=== PATIENT | female | born 1985 | race Caucasian/White ===

== ENCOUNTER 2019-11-05 11:17 | Inpatient (IN) | payer BC, OTHER ==
--- NOTE | 2019-11-05 12:23 | PDOC ---
History of Present Illness - General Chief Complaint: Shortness of Breath Stated Complaint: SENT BY DOC, SOB Time Seen by Provider: 11/05/19 12:23 History Source: Patient - History of Present Illness Initial Comments: 11/05/19 12:50 Ms. Obrien is a 34 y/o woman w/hx asthma, DM p/w four days of sob, syncopal episode at work yesterday. She reports presenting to urgent care when her symptoms began on Saturday, and receiving a breathing treatment, prednisone, amoxicillin at that time. She reports that the wheezing has resolved but the sob has continued. Yesterday while at her desk at work she reports becoming acutely diaphoretic before losing consciousness and waking up with her head on her desk. She had a complicated by placenta accreta and previa resulting in hysterectomy 7 months ago, and has had multiple infections at the surgical site since then. Her most recent course of abx was for a MRSA infection in August. Picc line was removed at the end of august. Her is admitted to the hospital for a diverticulitis and she is concerned about child welfare caseworker. Past History - Past Medical History Allergies/Adverse Reactions: Allergies Allergy/AdvReac Type Severity Reaction Status Date / Time No Known Drug Allergies Allergy Verified 11/05/19 11:38 strawberry [[place]] Allergy Verified 11/05/19 11:38 garlic AdvReac Mild Itching Verified 11/05/19 11:38 nut Allergy Mild Hives Uncoded 11/05/19 11:38 Home Medications: Ambulatory Orders Vit/Iron Fum/Folic AC [ Tablet] 1 each PO DAILY 05/17/14 Albuterol Sulfate Inhaler - [Ventolin Hfa Inhaler -] 1 - 2 inh PO Q4H PRN 04/19/16 Insulin NPH [Novolin N Vial -] 44 units SQ ACBK 05/22/16 Insulin NPH [Novolin N Vial -] 46 units SQ HS 05/22/16 Insulin Regular [Novolin R Vial -] 5 units SQ ASDIR 05/22/16 Insulin Regular [Novolin R Vial -] 25 unit SQ ACBK 05/22/16 Insulin Regular [Novolin R Vial -] 25 units SQ ACDIN 05/22/16 Asthma: Yes (LAST ATTACK 2 YEARS AGO) Cancer: No Cardiac Disorders: No COPD: No Diabetes: Yes HTN: No Seizures: No Thyroid Disease: No - Psycho Social/Smoking Cessation Hx Smoking History: Never smoked Have you smoked in the past 12 months: No Information on smoking cessation initiated: No Hx Alcohol Use: No Drug/Substance Use Hx: No Substance Use Type: None Hx Substance Use Treatment: No Review of Systems - Review of Systems Able to Perform ROS?: Yes Comments:: 11/05/19 16:02 GENERAL/CONSTITUTIONAL: No fever or chills. No weakness. HEAD, EYES, EARS, NOSE AND THROAT: No change in vision. No ear pain or discharge. No sore throat. CARDIOVASCULAR: No chest pain RESPIRATORY: SOB. No cough, wheezing, or hemoptysis. GASTROINTESTINAL: Abdominal pain. No nausea, vomiting, diarrhea or constipation. GENITOURINARY: No dysuria, frequency, or change in urination. MUSCULOSKELETAL: No joint or muscle swelling or pain. No neck or back pain. SKIN: No rash NEUROLOGIC: Syncope. No headache, vertigo, or change in strength/sensation. ENDOCRINE: No increased thirst. No abnormal weight change HEMATOLOGIC/LYMPHATIC: No anemia, easy bleeding, or history of blood clots. ALLERGIC/IMMUNOLOGIC: No hives or skin allergy. *Physical Exam - Vital Signs Last Vital Signs Temp Pulse Resp BP Pulse Ox 97.9 F 83 19 145/75 99 11/05/19 11:34 11/05/19 11:34 11/05/19 11:34 11/05/19 11:34 11/05/19 11:34 - Physical Exam 11/05/19 16:05 GENERAL: Awake, alert, and fully oriented HEAD: No signs of trauma, normocephalic, atraumatic EYES: PERRLA, EOMI, sclera anicteric, conjunctiva clear ENT: Auricles normal inspection, hearing grossly normal, nares patent, oropharynx clear without exudates. Moist mucosa NECK: Normal ROM, supple, no lymphadenopathy, JVD, or masses LUNGS: No distress, speaks full sentences, clear to auscultation bilaterally HEART: Regular rate and rhythm, normal S1 and S2, no murmurs, rubs or gallops, peripheral pulses normal and equal bilaterally. ABDOMEN: Diffuse tenderness. Surgical site visualized, no active drainage or overlaying erythema. Soft, normoactive bowel sounds. No guarding, no rebound. No masses EXTREMITIES : Normal inspection, Normal range of motion, no edema. No clubbing or cyanosis NEUROLOGICAL: Cranial nerves II through XII grossly intact. Normal speech, normal gait, no focal sensorimotor deficits SKIN: Warm, Dry, normal turgor, no rashes or lesions noted ED Treatment Course - LABORATORY CBC & Chemistry Diagram: 11/05/19 13:25 11/05/19 13:25 Medical Decision Making - Medical Decision Making 11/05/19 16:05 34F w/hx asthma, HTN p/w four days of worsening abdominal pain, sob sent by urgent care for evaluation. Ddx includes intraabdominal abscess given multiple prior infections. Atypical ACS also possible given risk factors. PE unlikely with PERC 0. Plan: CT abdomen/pelvis w/contrast CBC CMP Cardiac profile Lactate BNP Serum test EKG CXR UA Urine culture 4mg morphine for pain Duoneb x2 Dispo: Pending --- CT abdomen/pelvis - no abscess or other acute process noted CBC - WBC 12 CMP - wnl Lactate - 3.7 1L LR ordered - negative BNP - negative 11/05/19 17:20 Case discussed with admitting team, patient admitted. Discharge - Discharge Information Problems reviewed: Yes Clinical Impression/Diagnosis: Syncope Qualifiers: Syncope type: unspecified Qualified Code(s): R55 - Syncope and collapse Asthma exacerbation Qualifiers: Asthma severity: unspecified severity Asthma persistence: unspecified Qualified Code(s): J45.901 - Unspecified asthma with (acute) exacerbation Condition: Stable - Admission Yes - Follow up/Referral Referrals: Radames Curtis MD [Primary Care Provider] - - Patient Discharge Instructions - Post Discharge Activity
[2019-11-05] MEDS ORDERED: ACETAMINOPHEN 1000 MG/100 ML VIAL (NON FORMULARY) IVPB ONE (12:46)
[2019-11-05] MEDS ORDERED: morphine CARPU-JECT 4 MG/1 ML DISP.SYRIN IVPUSH ONE (12:53)
[2019-11-05] MEDS ORDERED: ACETAMINOPHEN INJECTION 100 ML IVPB ONE (13:03)
[2019-11-05] MEDS ORDERED: morphine SULFATE 4 MG/ML VIAL ONE (13:03)
[2019-11-05] MEDS ORDERED: ALBUTEROL SO4 2.5/IPRATROPIUM 0.5 INH SOL 3 ML VIAL.NEB. NEB ONE ×3 (13:13→16:11)
[2019-11-05 14:18] LABS: BASO % 0.8 % (0-2.0); EOS % 0.1 % (0-4.5); HEMATOCRIT 39.5 % (32.4-45.2); HEMOGLOBIN 12.8 GM/dL (10.7-15.3); LYMPH % 11.4 % (8-40); MCH 23.9 pg (25.7-33.7); MCHC 32.3 g/dl (32.0-36.0); MEAN CELL VOLUME 73.9 fl (80-96); MEAN PLT VOLUME 8.3 fl (7.5-11.1); MONO % 2.2 % (3.8-10.2); NEUT % 85.5 % (42.8-82.8); PLATELET COUNT 322 K/MM3 (134-434); RBC 5.34 M/mm3 (3.60-5.2); RDW 19.4 % (11.6-15.6); WHITE BLOOD COUNT 12.1 K/mm3 (4.0-10.0)
[2019-11-05 14:27] LABS: INR 0.87 (0.83-1.09); PROTHROMBIN TIME (PATIENT) 10.2 SEC (9.7-13.0)
[2019-11-05 14:56] LABS: ALBUMIN 4.1 g/dl (3.4-5.0); ALK PHOS 107 U/L (45-117); ANION GAP 11 MMOL/L (8-16); BILIRUBIN,TOTAL 0.6 mg/dL (0.2-1); BLOOD UREA NITROGEN 11.2 mg/dL (7-18); CALCIUM 9.4 mg/dL (8.5-10.1); CHLORIDE 104 mmol/L (98-107); CO2 22 mmol/L (21-32); CREATININE 0.7 mg/dL (0.55-1.3); GLUCOSE,RANDOM 116 mg/dL (74-106); N-TERMINAL BNP 65.6 pg/ml (5-125); POTASSIUM 5.2 mmol/L (3.5-5.1); SGOT/AST 22 U/L (15-37); SGPT/ALT 24 U/L (13-61); SODIUM 138 mmol/L (136-145); TOT PROT 8.1 g/dl (6.4-8.2)
--- NOTE | 2019-11-05 15:05 | EKG ---
Test Reason : Blood Pressure : / mmHG Vent. Rate : 072 BPM Atrial Rate : 072 BPM P-R Int : 148 ms QRS Dur : 074 ms QT Int : 380 ms P-R-T Axes : 025 032 032 degrees QTc Int : 416 ms NORMAL SINUS RHYTHM WITH SINUS ARRHYTHMIA LOW VOLTAGE QRS BORDERLINE ECG NO PREVIOUS ECGS AVAILABLE Confirmed by ANJEL WILSON, SUJATHA ([id number]) on 11/05/2019 3:04:56 PM Referred By: Confirmed By:SUJATHA HOBBS MD
[2019-11-05] MEDS ORDERED: LACTATED RINGERS SOLUTION 1000 ML INFUS.BAG IV ONE ×2 (15:09→17:02)
--- NOTE | 2019-11-05 16:04 | PDOC ---
Attending Attestation - Resident Resident Name: Jose Alejandro Goode - HPI HPI: 11/05/19 15:58 Pt presents to the ED complaining of worsening abdominal pain and shortness of breath. History of cesarian section with infection and revisions, as noted in resident note. Also complaining of worsening shortness of breath and dry cough without fever or sick contacts. States that the shortnes of breath feels like her fever and is improved with her inhaler. Denies travel or sick contacts. - Physicial Exam PE: 11/05/19 16:00 Agree with resident exam. Patient is alert and oriented and in no acute distress. Lungs are clear, with good air entry and no wheezing. + tachypnea. Abdomen:+ incision with 1 cm area that is open. No drainage. No surrounding erythema. + diffuse abdominal tenderness. - Medical Decision Making 11/05/19 16:02 Pt presents to the ED complaining of wheezing and shortness of breath consistent with prior asthma exacerbations. Will treat with nebs and reasess. recently completed course of steroids. CXR negative. Also complaining of abodminal pain, history of multiple infections. Will check CT to rule out abscess or other infections. Will check UA. Lactate is elevated. Will hydrate and repeat. Since patient is afebrile, will hold of on antibiotics while we attempt to identify a source. 11/05/19 16:04
[2019-11-05] MEDS ORDERED: methylPREDNISolone NA SUCC 125 MG/2 ML VIAL IVPB ONE (16:27)
[2019-11-05] MEDS ORDERED: methylPREDNISolone NA SUCC 125 MG/2 ML VIAL ONE (17:00)
[2019-11-05] MEDS ORDERED: SODIUM CHLORIDE 2,000 ML IV STA (17:33)
[2019-11-05] MEDS ORDERED: SODIUM ZIRCONIUM CYCLOSILICATE (LOKELMA) 5 GM PACKET PO ONE (17:36)
[2019-11-05] MEDS ORDERED: ALBUTEROL SO4 0.042% IH SOL 1.25 MG/3 ML VIAL.NEB NEB PRN (17:37)
--- NOTE | 2019-11-05 18:05 | HP ---
CHIEF COMPLAINT: asthma; abdominal pain PCP: HISTORY OF PRESENT ILLNESS: 34 y/o female with PMH of DM, asthma, multiple abdominal surgeries presents to the ED with complaints of shortness of breath and abdominal pain- she states that her shortness of breath started a few days ago and she went to urgent care and she was discharged home on a steroid taper and augmentin in addition-she was also having abdominal pains; she has had multiple abdominal surgeries (3 c sections; hysterectomy which was complicated by multiple abscesses requiring in patient hospitalizations and picc line abx) she states that on saturday she also started to notice that she had some yellow discharge with a fishy odor; yesterday her pain and breathing were very troublesome (she was gasping for air) and she passed out at work- she had some daiphoresis prior to passing out however she was not having any chest pains/nausea/vomiting- she denies any recent travel/sick contacts ER course was notable for: (1)vitals wnl (2)wbc 12.6, K 5.2, lactic acid 3.7 UA pending (3)cxr: negative for any acute pathology; ab/pelvis CT negative for any acute abscess or intrabdominal process (4) solumedrol 125; duonebs x2; morphine 4mg, 1L LR Recent Travel: denies PAST MEDICAL HISTORY: see above PAST SURGICAL HISTORY: 3 c sections; 1 hysterectomy Social History: Smoking:denies Alcohol:denies Drugs: denies Allergies No Known Drug Allergies Allergy (Verified 11/05/19 11:38) strawberry [[place]] Allergy (Verified 11/05/19 11:38) garlic Adverse Reaction (Mild, Verified 11/05/19 11:38) Itching nut Allergy (Mild, Uncoded 11/05/19 11:38) Hives HOME MEDICATIONS: Home Medications Medication Instructions Recorded Vit/Iron Fum/Folic AC 1 each PO DAILY 05/17/14 [ Tablet] Albuterol Sulfate Inhaler - 1 - 2 inh PO Q4H PRN 04/19/16 [Ventolin Hfa Inhaler -] Insulin NPH [Novolin N Vial -] 44 units SQ ACBK 05/22/16 Insulin NPH [Novolin N Vial -] 46 units SQ HS 05/22/16 Insulin Regular [Novolin R Vial -] 5 units SQ ASDIR 05/22/16 Insulin Regular [Novolin R Vial -] 25 unit SQ ACBK 05/22/16 Insulin Regular [Novolin R Vial -] 25 units SQ ACDIN 05/22/16 REVIEW OF SYSTEMS CONSTITUTIONAL: Absent: fever, chills, diaphoresis, generalized weakness, malaise, loss of appetite, weight change HEENT: Absent: rhinorrhea, nasal congestion, throat pain, throat swelling, difficulty swallowing, mouth swelling, ear pain, eye pain, visual changes CARDIOVASCULAR: Absent: chest pain, syncope, palpitations, irregular heart rate, lightheadedness, peripheral edema RESPIRATORY: Present: shortness of breath, wheezing Absent: cough, , dyspnea with exertion, orthopnea, stridor, hemoptysis GASTROINTESTINAL: Present: abdominal pain Absent: abdominal distension, nausea, vomiting, diarrhea, constipation, melena, hematochezia GENITOURINARY: Absent: dysuria, frequency, urgency, hesitancy, hematuria, flank pain, genital pain MUSCULOSKELETAL: Absent: myalgia, arthralgia, joint swelling, back pain, neck pain SKIN: Absent: rash, itching, pallor HEMATOLOGIC/IMMUNOLOGIC: Absent: easy bleeding, easy bruising, lymphadenopathy, frequent infections ENDOCRINE: Absent: unexplained weight gain, unexplained weight loss, heat intolerance, cold intolerance NEUROLOGIC: Absent: headache, focal weakness or paresthesias, dizziness, unsteady gait, seizure, mental status changes, bladder or bowel incontinence PSYCHIATRIC: Absent: anxiety, depression, suicidal or homicidal ideation, hallucinations. PHYSICAL EXAMINATION Vital Signs - 24 hr 11/05/19 11/05/19 11:34 12:05 Temperature 97.9 F Pulse Rate 83 Respiratory 19 Rate Blood Pressure 145/75 O2 Sat by Pulse 99 98 Oximetry (%) GENERAL: Awake, alert, and fully oriented, in no acute distress. EYES: PEERLA; EOMI; no scleral icterus NECK: no JVD; no lymphadenopathy LUNGS: diminsihed breath sounds slightly at the bases; no wheezing/rales/rhonchi HEART: Regular rate and rhythm, normal S1 and S2 without murmur, rub or gallop. ABDOMEN: Soft, +BS ; midline verticxal wound slight erytham at incision site no surrounding erythema/drainage/ foul odor- MUSCULOSKELETAL: Normal range of motion at all joints. No bony deformities or tenderness. No CVA tenderness. EXTREMITIES: warm; well-perfused no clubbing/cyanosis or edema NEUROLOGICAL: Cranial nerves II-XII intact. Normal speech. Normal gait. PSYCHIATRIC: Cooperative. Good eye contact. Appropriate mood and affect. SKIN: Warm, dry, normal turgor, no rashes or lesions noted, normal capillary refill. Laboratory Results - last 24 hr 11/05/19 11/05/19 11/05/19 13:25 13:25 13:25 WBC 12.1 H RBC 5.34 H Hgb 12.8 Hct 39.5 D MCV 73.9 L MCH 23.9 L D MCHC 32.3 RDW 19.4 H Plt Count 322 D MPV 8.3 Absolute Neuts (auto) 10.3 H Neutrophils % 85.5 H D Lymphocytes % 11.4 D Monocytes % 2.2 L Eosinophils % 0.1 D Basophils % 0.8 Nucleated RBC % 0 PT with INR INR PTT (Actin FS) Sodium Potassium Chloride Carbon Dioxide Anion Gap BUN Creatinine Est GFR (CKD-EPI)AfAm Est GFR (CKD-EPI)NonAf Random Glucose Lactic Acid 3.7 H* Calcium Total Bilirubin AST ALT Alkaline Phosphatase Creatine Kinase Troponin I B-Natriuretic Peptide Total Protein Albumin Serum , Qual Negative 11/05/19 11/05/19 13:25 13:25 WBC RBC Hgb Hct MCV MCH MCHC RDW Plt Count MPV Absolute Neuts (auto) Neutrophils % Lymphocytes % Monocytes % Eosinophils % Basophils % Nucleated RBC % PT with INR 10.20 INR 0.87 PTT (Actin FS) 31.0 Sodium 138 Potassium 5.2 H Chloride 104 Carbon Dioxide 22 Anion Gap 11 BUN 11.2 Creatinine 0.7 Est GFR (CKD-EPI)AfAm 131.02 Est GFR (CKD-EPI)NonAf 113.04 Random Glucose 116 H Lactic Acid Calcium 9.4 Total Bilirubin 0.6 AST 22 ALT 24 Alkaline Phosphatase 107 Creatine Kinase 105 Troponin I < 0.02 B-Natriuretic Peptide 65.6 Total Protein 8.1 Albumin 4.1 Serum , Qual ASSESSMENT/PLAN: 34 y/o female with PMH of DM, asthma, multiple abdominal surgeries presents to the ED with complaints of shortness of breath and abdominal pain #Asthma Exacerbation CXR negative; receieved solumedrol 125; duonebs -solumedrol 40 q4 -duonebs standing -albuterol PRN -repeat CXR in AM #Abdominal Pain ab/pelvis CT w/ contrast showing no abscess or intra-abdominal process -elevated lactic acid; will give 2 more boluses then repeat -morphine PRN for pain -currently doesn't look infected; will monitor for signs on infection -wound care consulted #Hyperkalemia K 5.2 -will give lokelma x1 -repeat BMP at midnight #DM -BGMS ACHS -ISS ACHS f/e/n NS @75 mls/hr hyperkalemia- repeat bmp at midnight sodium controlled dvt ppx: scds Family Medical History Family Hx Diabetes: Mother Problem List - Problem (1) Asthma exacerbation Code(s): J45.901 - UNSPECIFIED ASTHMA WITH (ACUTE) EXACERBATION Qualifiers: Asthma severity: unspecified severity Asthma persistence: unspecified Qualified Code(s): J45.901 - Unspecified asthma with (acute) exacerbation (2) Gestational diabetes mellitus Code(s): O24.419 - GESTATIONAL DIABETES MELLITUS IN , UNSP CONTROL Visit type - Emergency Visit Emergency Visit: Yes ED Registration Date: 11/05/19 Care time: The patient presented to the Emergency Department on the above date and was hospitalized for further evaluation of their emergent condition. - New Patient This patient is new to me today: Yes Date on this admission: 11/05/19 - Critical Care Critical Care patient: No ATTENDING PHYSICIAN STATEMENT I saw and evaluated the patient. I reviewed the resident's note and discussed the case with the resident. I agree with the resident's findings and plan as documented. SUBJECTIVE: OBJECTIVE: ASSESSMENT AND PLAN:
[2019-11-05] MEDS ORDERED: AZITHROMYCIN IVPB 500 MG/250 ML BAG IVPB ONE (18:14)
--- NOTE | 2019-11-05 18:39 | PN ---
Teaching Attending Note Name of Resident: Herminia Em ATTENDING PHYSICIAN STATEMENT I saw and evaluated the patient. I reviewed the resident's note and discussed the case with the resident. I agree with the resident's findings and plan as documented. SUBJECTIVE: Presents with increasing SOB, cough, and abdominal discomfort. No fever/chills/sputum/nausea/vomiting/diarrhea. OBJECTIVE: Afebrile, Hemodynamically Stable. Last Vital Signs Temp Pulse Resp BP Pulse Ox 97.9 F 83 19 145/75 98 11/05/19 11:34 11/05/19 11:34 11/05/19 11:34 11/05/19 11:34 11/05/19 12:05 HEENT - Atraumatic, Normocephalic Heart - S1, S2, RRR Lungs - clear to auscultation, no wheeze. Abdomen - High BMI. Soft. small surgical incision ulcer with no exudate or surrounding erythema. Extremities - No edema, no calf tenderness. Neuro - AAO x 3. Tone/Power normal all extremities. Laboratory Results - last 24 hr 11/05/19 11/05/19 11/05/19 13:25 13:25 13:25 WBC 12.1 H RBC 5.34 H Hgb 12.8 Hct 39.5 D MCV 73.9 L MCH 23.9 L D MCHC 32.3 RDW 19.4 H Plt Count 322 D MPV 8.3 Absolute Neuts (auto) 10.3 H Neutrophils % 85.5 H D Lymphocytes % 11.4 D Monocytes % 2.2 L Eosinophils % 0.1 D Basophils % 0.8 Nucleated RBC % 0 PT with INR INR PTT (Actin FS) Sodium Potassium Chloride Carbon Dioxide Anion Gap BUN Creatinine Est GFR (CKD-EPI)AfAm Est GFR (CKD-EPI)NonAf Random Glucose Lactic Acid 3.7 H* Calcium Total Bilirubin AST ALT Alkaline Phosphatase Creatine Kinase Troponin I B-Natriuretic Peptide Total Protein Albumin Serum , Qual Negative 11/05/19 11/05/19 13:25 13:25 WBC RBC Hgb Hct MCV MCH MCHC RDW Plt Count MPV Absolute Neuts (auto) Neutrophils % Lymphocytes % Monocytes % Eosinophils % Basophils % Nucleated RBC % PT with INR 10.20 INR 0.87 PTT (Actin FS) 31.0 Sodium 138 Potassium 5.2 H Chloride 104 Carbon Dioxide 22 Anion Gap 11 BUN 11.2 Creatinine 0.7 Est GFR (CKD-EPI)AfAm 131.02 Est GFR (CKD-EPI)NonAf 113.04 Random Glucose 116 H Lactic Acid Calcium 9.4 Total Bilirubin 0.6 AST 22 ALT 24 Alkaline Phosphatase 107 Creatine Kinase 105 Troponin I < 0.02 B-Natriuretic Peptide 65.6 Total Protein 8.1 Albumin 4.1 Serum , Qual Current Medications Generic Name Dose Route Start Last Admin Trade Name Freq PRN Reason Stop Dose Admin Albuterol Sulfate 1 amp 11/05/19 17:37 Ventolin 0.042trength) - NEB Q4H PRN SHORT OF BREATH/WHEEZING Albuterol/Ipratropium 1 amp 11/05/19 20:00 Duoneb - NEB RQID FREDDY Sodium Chloride 2,000 mls @ 1,000 mls/hr 11/05/19 17:33 11/05/19 17:51 Normal Saline - IV 11/05/19 19:32 1,000 mls/hr ASDIR STA Administration Azithromycin 500 mg/ Dextrose 250 mls @ 250 mls/hr 11/05/19 18:14 IVPB 11/05/19 19:13 ONCE ONE Insulin Aspart 0 vial 11/05/19 22:00 Novolog Vial Sliding Scale - SQ ACHS FREDDY Protocol Methylprednisolone Sodium Succinate 40 mg 11/05/19 21:00 Solu-Medrol - IVPUSH Q6H-IV [facility] Home Medications Medication Instructions Recorded Vit/Iron Fum/Folic AC 1 each PO DAILY 05/17/14 [ Tablet] Albuterol Sulfate Inhaler - 1 - 2 inh PO Q4H PRN 04/19/16 [Ventolin Hfa Inhaler -] Insulin NPH [Novolin N Vial -] 44 units SQ ACBK 05/22/16 Insulin NPH [Novolin N Vial -] 46 units SQ HS 05/22/16 Insulin Regular [Novolin R Vial -] 5 units SQ ASDIR 05/22/16 Insulin Regular [Novolin R Vial -] 25 unit SQ ACBK 05/22/16 Insulin Regular [Novolin R Vial -] 25 units SQ ACDIN 05/22/16 ASSESSMENT AND PLAN: 34 year old female with history of DM 2, Asthma, 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 1. Acute Asthma Exacerbation CXR - clear. IV Solumedrol, Azithromycin, Bronchodilator Nebs, supplemental oxygen if required. Elevated lactate likely sec to back to back Bronchodilator Nebs. Will hydrate and monitor lactate. 2. Abdominal Surgical Wound discomfort and discharge. Hx MRSA infection surgical wound. CT A/P - No acute pathology, post-op scarring lower anterior abdominal wall. No evidence of abscess or infection/cellulitis. Foul smelling exudate improved on Augmentin, will continue. Wound Care consulted. Isolation for prior MRSA infection. 3. Hyperkalemia, etiology unclear Will give Bronchodilator Nebs, Lokelma, and monitor levels. 4. DM 2 - Continue home insulin regimen. DVT Px - Heparin SQ GI Px - PPI ashish as patient is on IV steroid
[2019-11-05 19:09] LABS: PH,URINE 5.5 (5.0-8.0); URINE APPEARANCE CLEAR; URINE BILIRUBIN NEGATIVE (NEGATIVE); URINE COLOR YELLOW; URINE GLUCOSE (UA) NEGATIVE (NEGATIVE); URINE KETONE NEGATIVE (NEGATIVE); URINE LEUK ESTERASE NEGATIVE (NEGATIVE); URINE NITRITE NEGATIVE (NEGATIVE); URINE PROTEIN NEGATIVE (NEGATIVE); URINE UROBILINOGEN 0.2 mg/dL (0.2-1.0)
[2019-11-05] MEDS: ALBUTEROL SO4 2.5/IPRATROPIUM 0.5 INH SOL 3 ML VIAL.NEB. NEB SCH (20:00)
[2019-11-05] MEDS ORDERED: MORPHINE SULFATE 2 MG/ML VIAL IVPUSH ONE (20:31)
[2019-11-05] MEDS: methylPREDNISolone NA SUCC 40 MG/1 ML VIAL IVPUSH SCH (21:31)
[2019-11-05] MEDS: HEPARIN NA (PORCINE) 5,000 UNITS/ML 1ML VIAL SQ SCH (21:31)
[2019-11-05] MEDS: PANTOPRAZOLE 40 MG TABLET PO SCH (21:35)
[2019-11-05] MEDS: INSULIN SLIDING SCALE (NOVOLOG) 1 VIAL SQ SCH (21:51)
[2019-11-05] MEDS ORDERED: SODIUM CHLORIDE 1,000 ML IV SCH (22:30)
[2019-11-06 00:39] VITALS: BMI 49.4
[2019-11-06] MEDS: methylPREDNISolone NA SUCC 40 MG/1 ML VIAL IVPUSH SCH ×2 (02:13→09:40)
[2019-11-06 02:24] LABS: BLOOD UREA NITROGEN 13.1 mg/dL (7-18); CALCIUM 8.7 mg/dL (8.5-10.1); CREATININE 0.9 mg/dL (0.55-1.3); POTASSIUM 4.6 mmol/L (3.5-5.1)
[2019-11-06] MEDS ORDERED: ACETAMINOPHEN 500 MG TABLET (FP) PO PRN (03:52)
[2019-11-06] MEDS: INSULIN SLIDING SCALE (NOVOLOG) 1 VIAL SQ SCH ×2 (06:45→11:55)
[2019-11-06] MEDS: HEPARIN NA (PORCINE) 5,000 UNITS/ML 1ML VIAL SQ SCH ×2 (06:46→14:37)
[2019-11-06 07:41] LABS: BASO % 0.1 % (0-2.0); HEMATOCRIT 36.3 % (32.4-45.2); HEMOGLOBIN 12.2 GM/dL (10.7-15.3); LYMPH % 9.3 % (8-40); MCH 24.5 pg (25.7-33.7); MCHC 33.5 g/dl (32.0-36.0); MEAN CELL VOLUME 73.2 fl (80-96); MEAN PLT VOLUME 8.1 fl (7.5-11.1); NEUT % 89.6 % (42.8-82.8); PLATELET COUNT 323 K/MM3 (134-434); RBC 4.96 M/mm3 (3.60-5.2); RDW 19.5 % (11.6-15.6); WHITE BLOOD COUNT 10.9 K/mm3 (4.0-10.0)
[2019-11-06] MEDS ORDERED: AMOX TR/POT CLAV 875MG/125MG TABLETS (FP) PO SCH (08:00)
[2019-11-06 08:02] LABS: ALBUMIN 3.4 g/dl (3.4-5.0); BILIRUBIN,TOTAL 0.7 mg/dL (0.2-1); BLOOD UREA NITROGEN 12.9 mg/dL (7-18); CALCIUM 8.6 mg/dL (8.5-10.1); CREATININE 0.7 mg/dL (0.55-1.3); MAGNESIUM 2.3 mg/dL (1.8-2.4); PHOSPHOROUS 4.1 mg/dL (2.5-4.9); POTASSIUM 4.3 mmol/L (3.5-5.1); TOT PROT 6.9 g/dl (6.4-8.2)
[2019-11-06] MEDS: ALBUTEROL SO4 2.5/IPRATROPIUM 0.5 INH SOL 3 ML VIAL.NEB. NEB SCH ×2 (08:23→11:39)
[2019-11-06] MEDS ORDERED: PT OWN MED DRAWER 7, Y5N ONE (09:39)
[2019-11-06] MEDS: PANTOPRAZOLE 40 MG TABLET PO SCH (09:40)
--- NOTE | 2019-11-06 09:44 | CONSULT ---
- Consultation REQUESTING PROVIDER: Wound Care - Dominguez Her CONSULT REQUEST: We have been asked to surgically evaluate this patient for open abd wound. Called to evaluate 34 yo female with PMHx of DM, asthma, multiple abdominal surgeries presents to the ED with complaints of shortness of breath. Admitted for acute asthma exacerbation (patient feels it was caused by the cleaning going on in her office). She also mentioned that she has an open wound on her abd (associated with her hysterectomy 7 months ago, complicated by multiple abscesses requiring in-patient hospitalizations and picc line abx). Last Vital Signs Temp Pulse Resp BP Pulse Ox 98 F 72 20 121/64 97 11/06/19 06:24 11/06/19 06:24 11/06/19 06:24 11/06/19 06:24 11/05/19 20:00 CBC, BMP 11/06/19 06:35 11/06/19 06:35 PE: GEN: Awake, alert, and fully oriented, in no acute distress. ABD: Obese habitus. Large pannus. Soft, nontender, not distended, normoactive bowel sounds. Infraumbilical incision extending to suprapubic --> largely the wound is closed and contracted. The inferior pole of the wound is open (epidermis/dermis, no subcutaneous tissue exposed). Evidence of wound contratcture. Not malodorous. No discharge. No periwound erythema. Problem List - Problems (1) Delayed surgical wound healing Assessment/Plan: 34 yo female admitted with acute exacerbation of her asthma. Has chronic/slowing healing abd wound associated with hysterectomy 7 months ago. Poor wound healing because she is morbidly obese (large pannus forming intertriginous region over wound) and diabetes. No evidence of wound infection. - wash wound with soap and water daily - dry dressing PRN daily - f/u care with her surgeon - medical management of her current medical condition. - tight glycemic control - no further surgical input required Above discussed with my attending and agrees On behalf of Dr. Her, thank you for the opportunity to participate in your p atient's care. Code(s): T81.89XA - OTH COMPLICATIONS OF PROCEDURES, NEC, INIT (2) Asthma exacerbation Code(s): J45.901 - UNSPECIFIED ASTHMA WITH (ACUTE) EXACERBATION Qualifiers: Asthma severity: unspecified severity Asthma persistence: unspecified Qualified Code(s): J45.901 - Unspecified asthma with (acute) exacerbation (3) Gestational diabetes mellitus Code(s): O24.419 - GESTATIONAL DIABETES MELLITUS IN , UNSP CONTROL Visit type - Case Type Case Type: ED Admission - Emergency Emergency Visit: Yes ED Registration Date: 11/05/19 Care time: The patient presented to the Emergency Department on the above date and was hospitalized for further evaluation of their emergent condition. - New patient This patient is new to me today: Yes Date on this admission: 11/06/19
[2019-11-06] MEDS ORDERED: AZITHROMYCIN IVPB 250 MG in DEXTROSE 5%-WATER - 250 ML IVPB SCH (10:00)
[2019-11-06] MEDS ORDERED: predniSONE 20 MG TABLET (UD) PO ONE (10:12)
[2019-11-06 13:29] VITALS: BP 123/53; PULSE 91; TEMP 98.1
--- NOTE | 2019-11-06 13:53 | DS ---
Physical Exam: SUBJECTIVE: Patient seen and examined at bedside. Endorses respiration is much better. Denies any acute complaints. OBJECTIVE: Vital Signs Period Temp Pulse Resp BP Sys/Aguilar Pulse Ox Last 24 Hr 97.9 F-98.1 F 70-94 17-20 108-158/45-89 97-98 PHYSICAL EXAM GENERAL: NAD HEAD: Normal with no signs of trauma. EYES: EOMI Sclera Clear ENT: MMM NECK: Trachea midline, full range of motion, supple. LUNGS: CTAB HEART: RRR S1S2 ABDOMEN: Open wound lower abdomen, nonoozing, non odorous. EXTREMITIES: No CCE. NEUROLOGICAL: Cranial nerves II through XII grossly intact. PSYCH: Normal mood, normal affect. SKIN: No rashes or lesions appreciated LABS Laboratory Results - last 24 hr 11/05/19 11/05/19 11/05/19 13:25 13:25 13:25 WBC 12.1 H RBC 5.34 H Hgb 12.8 Hct 39.5 D MCV 73.9 L MCH 23.9 L D MCHC 32.3 RDW 19.4 H Plt Count 322 D MPV 8.3 Absolute Neuts (auto) 10.3 H Neutrophils % 85.5 H D Lymphocytes % 11.4 D Monocytes % 2.2 L Eosinophils % 0.1 D Basophils % 0.8 Nucleated RBC % 0 PT with INR INR PTT (Actin FS) Sodium Potassium Chloride Carbon Dioxide Anion Gap BUN Creatinine Est GFR (CKD-EPI)AfAm Est GFR (CKD-EPI)NonAf POC Glucometer Random Glucose Lactic Acid 3.7 H* Calcium Phosphorus Magnesium Total Bilirubin AST ALT Alkaline Phosphatase Creatine Kinase Troponin I B-Natriuretic Peptide Total Protein Albumin Serum , Qual Negative Urine Color Urine Appearance Urine pH Ur Specific Ernul Urine Protein Urine Glucose (UA) Urine Ketones Urine Blood Urine Nitrite Urine Bilirubin Urine Urobilinogen Ur Leukocyte Esterase 11/05/19 11/05/19 11/05/19 13:25 13:25 17:30 WBC RBC Hgb Hct MCV MCH MCHC RDW Plt Count MPV Absolute Neuts (auto) Neutrophils % Lymphocytes % Monocytes % Eosinophils % Basophils % Nucleated RBC % PT with INR 10.20 INR 0.87 PTT (Actin FS) 31.0 Sodium 138 Potassium 5.2 H Chloride 104 Carbon Dioxide 22 Anion Gap 11 BUN 11.2 Creatinine 0.7 Est GFR (CKD-EPI)AfAm 131.02 Est GFR (CKD-EPI)NonAf 113.04 POC Glucometer Random Glucose 116 H Lactic Acid Calcium 9.4 Phosphorus Magnesium Total Bilirubin 0.6 AST 22 ALT 24 Alkaline Phosphatase 107 Creatine Kinase 105 Troponin I < 0.02 B-Natriuretic Peptide 65.6 Total Protein 8.1 Albumin 4.1 Serum , Qual Urine Color Yellow Urine Appearance Clear Urine pH 5.5 D Ur Specific [place] 1.063 H Urine Protein Negative Urine Glucose (UA) Negative Urine Ketones Negative Urine Blood Negative Urine Nitrite Negative Urine Bilirubin Negative Urine Urobilinogen 0.2 Ur Leukocyte Esterase Negative 11/05/19 11/05/19 11/06/19 20:05 21:50 01:55 WBC RBC Hgb Hct MCV MCH MCHC RDW Plt Count MPV Absolute Neuts (auto) Neutrophils % Lymphocytes % Monocytes % Eosinophils % Basophils % Nucleated RBC % PT with INR INR PTT (Actin FS) Sodium 136 Potassium 4.6 Chloride 103 Carbon Dioxide 21 Anion Gap 12 BUN 13.1 Creatinine 0.9 Est GFR (CKD-EPI)AfAm 96.69 Est GFR (CKD-EPI)NonAf 83.42 POC Glucometer 203 Random Glucose 198 H Lactic Acid 5.1 H* Calcium 8.7 Phosphorus Magnesium Total Bilirubin AST ALT Alkaline Phosphatase Creatine Kinase Troponin I B-Natriuretic Peptide Total Protein Albumin Serum , Qual Urine Color Urine Appearance Urine pH Ur Specific [place] Urine Protein Urine Glucose (UA) Urine Ketones Urine Blood Urine Nitrite Urine Bilirubin Urine Urobilinogen Ur Leukocyte Esterase 11/06/19 11/06/19 11/06/19 01:55 06:35 06:35 WBC 10.9 H RBC 4.96 Hgb 12.2 Hct 36.3 MCV 73.2 L MCH 24.5 L MCHC 33.5 RDW 19.5 H Plt Count 323 MPV 8.1 Absolute Neuts (auto) 9.8 H Neutrophils % 89.6 H Lymphocytes % 9.3 Monocytes % 1.0 L Eosinophils % 0.0 D Basophils % 0.1 Nucleated RBC % 0 PT with INR INR PTT (Actin FS) Sodium 138 Potassium 4.3 Chloride 106 Carbon Dioxide 23 Anion Gap 9 BUN 12.9 Creatinine 0.7 Est GFR (CKD-EPI)AfAm 131.02 Est GFR (CKD-EPI)NonAf 113.04 POC Glucometer Random Glucose 160 H Lactic Acid 3.7 H* Calcium 8.6 Phosphorus 4.1 Magnesium 2.3 Total Bilirubin 0.7 AST 8 L ALT 20 Alkaline Phosphatase 97 Creatine Kinase Troponin I B-Natriuretic Peptide Total Protein 6.9 Albumin 3.4 Serum , Qual Urine Color Urine Appearance Urine pH Ur Specific [place] Urine Protein Urine Glucose (UA) Urine Ketones Urine Blood Urine Nitrite Urine Bilirubin Urine Urobilinogen Ur Leukocyte Esterase 11/06/19 11/06/19 11/06/19 06:35 06:41 11:52 WBC RBC Hgb Hct MCV MCH MCHC RDW Plt Count MPV Absolute Neuts (auto) Neutrophils % Lymphocytes % Monocytes % Eosinophils % Basophils % Nucleated RBC % PT with INR INR PTT (Actin FS) Sodium Potassium Chloride Carbon Dioxide Anion Gap BUN Creatinine Est GFR (CKD-EPI)AfAm Est GFR (CKD-EPI)NonAf POC Glucometer 177 225 Random Glucose Lactic Acid 2.6 H* Calcium Phosphorus Magnesium Total Bilirubin AST ALT Alkaline Phosphatase Creatine Kinase Troponin I B-Natriuretic Peptide Total Protein Albumin Serum , Qual Urine Color Urine Appearance Urine pH Ur Specific Ern[place] Urine Protein Urine Glucose (UA) Urine Ketones Urine Blood Urine Nitrite Urine Bilirubin Urine Urobilinogen Ur Leukocyte Esterase HOSPITAL COURSE: Date of Admission:11/05/19 Patient is a 34 y/o female with a PMH of DM, asthma, multiple abdominal surgeries who presented to the ED with complaints of shortness of breath and abdominal pain. CT abdomen/pelvis - no abscess or other acute process noted. Chest XRAY was also negative for any acute pathology. Patient was placed on IV Solumedrol, Azithromycin, and Bronchodilator Nebs. Furthermore, patient was noted to have an elevated lactate likely secondary to back to back Bronchodilator Nebs. Lactate peaked to 5.1 however ultimately trended downwards to 2.6 after I.V fluids. Patient was placed on Augmentin in light of her open abdominal wound. Wound care evaluated the patient and stated no acute intervention was necessary. Patient was discharged with 4 more days of Solumedrol 40 orally as well as Azithromycin for 3 more days. Patient was given Pulmonary and Wound care referrals. Date of Discharge: 11/06/19 Minutes to complete discharge: 35 Discharge Summary Problems reviewed: Yes Reason For Visit: INTRA-ABDOMINAL INFECTION,SYNCOPE Current Active Problems Asthma exacerbation (Acute) Delayed surgical wound healing (Acute) Syncope (Acute) Condition: Improved - Instructions Diet, Activity, Other Instructions: You presented to the hospital due to difficulty breathing. You were found to have an exacerbation of your asthma, You were treated with I.V steroids. You will be sent home with steroid medication which will be taken orally. You will take 4 more days of prednisone (1 pill a day). You will also take 5 more days of Amoxicillin (1 pill a day). This medication has already been prescribed to you previously by your primary care doctor. You will also take 3 more days of Azithromycin (1 pill a day). You are to take 1 pill daily for three days. Please follow up with the wound care doctor, Dr Her in 1 week. A referral has been provided for you. You were found to have an open wound on your lower abdomen which should be evaluated and treated by a cheese specialist. -wash wound with soap and water daily - dry dressing as needed daily - f/u care with wound care surgeon - tight glycemic control Please follow up with the [facility] Social Services, Dr Roger for your asthma in 1 week. Please take all of your medications as previously prescribed. You have indicated you do not currently use insulin. Please return to the hospital if you begin to experience worsening shortness of breath, chest pain, or any other abnormal symptoms. Referrals: Addy Roger MD [Staff Physician] - Dominguez Her DO [Staff Physician] - Radames Curtis MD [Primary Care Provider] - Disposition: HOME - Home Medications Comprehensive Discharge Medication List: Ambulatory Orders Albuterol Sulfate Inhaler - [Ventolin Hfa Inhaler -] 1 - 2 inh PO Q4H PRN #1 inhaler 11/06/19 Amoxicillin - [Amoxicillin 500mg Capsule -] 500 mg PO BID 11/06/19 Azithromycin 250 mg PO DAILY #3 tablet 11/06/19 Metformin HCl [Glucophage] 1,000 mg PO BID 11/06/19 predniSONE [Deltasone -] 40 mg PO DAILY #8 tablet 11/06/19 This patient is new to me today: Yes Date on this admission: 11/06/19 Emergency Visit: Yes ED Registration Date: 11/05/19 Care time: The patient presented to the Emergency Department on the above date and was hospitalized for further evaluation of their emergent condition. Critical Care patient: No - Discharge Referral Referred to [facility] No ATTENDING PHYSICIAN STATEMENT I saw and evaluated the patient. I reviewed the resident's note and discussed the case with the resident. I agree with the resident's findings and plan as documented. SUBJECTIVE: OBJECTIVE: ASSESSMENT AND PLAN:
--- NOTE | 2019-11-06 16:22 | PN ---
Teaching Attending Note Name of Resident: Rogelio Coffman ATTENDING PHYSICIAN STATEMENT I saw and evaluated the patient. I reviewed the resident's note and discussed the case with the resident. I agree with the resident's findings and plan as documented. SUBJECTIVE: SOB resolved. No fever/chills/sputum/nausea/vomiting/diarrhea. OBJECTIVE: Afebrile, Hemodynamically Stable. Last Vital Signs Temp Pulse Resp BP Pulse Ox 98.1 F 91 H 20 123/53 L 98 11/06/19 13:27 11/06/19 13:27 11/06/19 13:27 11/06/19 13:27 11/06/19 09:40 Heart - S1, S2, RRR Lungs - clear to auscultation, no wheeze. Abdomen - High BMI. Soft. small superficial surgical incision ulcer with no exudate or surrounding erythema. Extremities - No edema, no calf tenderness. Neuro - AAO x 3. Tone/Power normal all extremities. Laboratory Results - last 24 hr 11/05/19 11/05/19 11/05/19 17:30 20:05 21:50 WBC RBC Hgb Hct MCV MCH MCHC RDW Plt Count MPV Absolute Neuts (auto) Neutrophils % Lymphocytes % Monocytes % Eosinophils % Basophils % Nucleated RBC % Sodium Potassium Chloride Carbon Dioxide Anion Gap BUN Creatinine Est GFR (CKD-EPI)AfAm Est GFR (CKD-EPI)NonAf POC Glucometer 203 Random Glucose Lactic Acid 5.1 H* Calcium Phosphorus Magnesium Total Bilirubin AST ALT Alkaline Phosphatase Total Protein Albumin Urine Color Yellow Urine Appearance Clear Urine pH 5.5 D Ur Specific [place] 1.063 H Urine Protein Negative Urine Glucose (UA) Negative Urine Ketones Negative Urine Blood Negative Urine Nitrite Negative Urine Bilirubin Negative Urine Urobilinogen 0.2 Ur Leukocyte Esterase Negative 11/06/19 11/06/19 11/06/19 01:55 01:55 06:35 WBC 10.9 H RBC 4.96 Hgb 12.2 Hct 36.3 MCV 73.2 L MCH 24.5 L MCHC 33.5 RDW 19.5 H Plt Count 323 MPV 8.1 Absolute Neuts (auto) 9.8 H Neutrophils % 89.6 H Lymphocytes % 9.3 Monocytes % 1.0 L Eosinophils % 0.0 D Basophils % 0.1 Nucleated RBC % 0 Sodium 136 Potassium 4.6 Chloride 103 Carbon Dioxide 21 Anion Gap 12 BUN 13.1 Creatinine 0.9 Est GFR (CKD-EPI)AfAm 96.69 Est GFR (CKD-EPI)NonAf 83.42 POC Glucometer Random Glucose 198 H Lactic Acid 3.7 H* Calcium 8.7 Phosphorus Magnesium Total Bilirubin AST ALT Alkaline Phosphatase Total Protein Albumin Urine Color Urine Appearance Urine pH Ur Specific [place] Urine Protein Urine Glucose (UA) Urine Ketones Urine Blood Urine Nitrite Urine Bilirubin Urine Urobilinogen Ur Leukocyte Esterase 11/06/19 11/06/19 11/06/19 06:35 06:35 06:41 WBC RBC Hgb Hct MCV MCH MCHC RDW Plt Count MPV Absolute Neuts (auto) Neutrophils % Lymphocytes % Monocytes % Eosinophils % Basophils % Nucleated RBC % Sodium 138 Potassium 4.3 Chloride 106 Carbon Dioxide 23 Anion Gap 9 BUN 12.9 Creatinine 0.7 Est GFR (CKD-EPI)AfAm 131.02 Est GFR (CKD-EPI)NonAf 113.04 POC Glucometer 177 Random Glucose 160 H Lactic Acid 2.6 H* Calcium 8.6 Phosphorus 4.1 Magnesium 2.3 Total Bilirubin 0.7 AST 8 L ALT 20 Alkaline Phosphatase 97 Total Protein 6.9 Albumin 3.4 Urine Color Urine Appearance Urine pH Ur Specific [place] Urine Protein Urine Glucose (UA) Urine Ketones Urine Blood Urine Nitrite Urine Bilirubin Urine Urobilinogen Ur Leukocyte Esterase 11/06/19 11:52 WBC RBC Hgb Hct MCV MCH MCHC RDW Plt Count MPV Absolute Neuts (auto) Neutrophils % Lymphocytes % Monocytes % Eosinophils % Basophils % Nucleated RBC % Sodium Potassium Chloride Carbon Dioxide Anion Gap BUN Creatinine Est GFR (CKD-EPI)AfAm Est GFR (CKD-EPI)NonAf POC Glucometer 225 Random Glucose Lactic Acid Calcium Phosphorus Magnesium Total Bilirubin AST ALT Alkaline Phosphatase Total Protein Albumin Urine Color Urine Appearance Urine pH Ur Specific [place] Urine Protein Urine Glucose (UA) Urine Ketones Urine Blood Urine Nitrite Urine Bilirubin Urine Urobilinogen Ur Leukocyte Esterase Home Medications Medication Instructions Recorded Albuterol Sulfate Inhaler - 1 - 2 inh PO Q4H PRN #1 inhaler 11/06/19 [Ventolin Hfa Inhaler -] Amoxicillin - [Amoxicillin 500mg 500 mg PO BID 11/06/19 Capsule -] Azithromycin 250 mg PO DAILY #3 tablet 11/06/19 Metformin HCl [Glucophage] 1,000 mg PO BID 11/06/19 predniSONE [Deltasone -] 40 mg PO DAILY #8 tablet 11/06/19 ASSESSMENT AND PLAN: 34 year old female with history of DM 2, Asthma, 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 1. Acute Asthma Exacerbation - resolving CXR - clear. Improved with Solumedrol, Azithromycin, Bronchodilator Nebs. Elevated lactate sec to Bronchodilator Nebs normalized. Significantly improved - medically optimized for discharge on 4 additional days of Prednisone, Azithromcyin, Albuterol PRN. Pulmonary referral on discharge. 2. Abdominal Surgical Wound discomfort and discharge. Hx MRSA infection surgical wound. CT A/P - No acute pathology, post-op scarring lower anterior abdominal wall. No evidence of abscess or infection/cellulitis. Foul smelling exudate improved on Amoxicillin, currently site looks clean, will continue Amoxicillin on discharge. Wound Care evaluated - will continue to follow on discharge. 3. Hyperkalemia, etiology unclear - resolved. 4. DM 2 - Continue home insulin regimen. Medically optimized for discharge with Pulm and Wound Care follow up.
== END 2019-11-06 15:58 | disposition home or self-care (01) | DRG 202 ==
LOC: JER 11:17 → JERBED 15:20 → J7W 19:51
DX: J45.901 Unspecified asthma with (acute) exacerbation (principal); Z68.42 Body mass index [BMI] 45.0-49.9, adult; E87.5 Hyperkalemia; E11.9 Type 2 diabetes mellitus without complications; R55 Syncope and collapse; T81.89XA Other complications of procedures, not elsewhere classified, initial encounter; Y83.9 Surgical procedure, unspecified as the cause of abnormal reaction of the patient, or of later complication, without mention of misadventure at the time of the procedure; E66.01 Morbid (severe) obesity due to excess calories
CPT/HCPCS: 36415; 71046-TC-FY; 74177-TC; 80048; 80053; 81003; 82550; 82962; 83605; 83735; 83880; 84100; 84484; 84703; 85025; 85610; 85730; 87040; 87086; 93005; 93010; 94640; 99285-25; J1644; J7030; Q9967

== ENCOUNTER 2020-12-21 15:57 | Emergency (ER) | payer BC, OTHER ==
[2020-12-21 16:07] VITALS: BP 135/77; PULSE 89; TEMP 98.3; BMI 52.9
[2020-12-21] MEDS ORDERED: KETOROLAC TROMETHAMINE 30 MG/1 ML VIAL IVPUSH ONE (16:32)
[2020-12-21] MEDS ORDERED: ACETAMINOPHEN 1000 MG/100 ML VIAL (NON FORMULARY) IVPB ONE (16:32)
[2020-12-21] MEDS ORDERED: ACETAMINOPHEN INJECTION 100 ML IVPB ONE (16:44)
[2020-12-21] MEDS ORDERED: KETOROLAC TROMETHAMINE 30 MG/1 ML VIAL ONE (16:44)
[2020-12-21 17:10] LABS: BASO % 0.5 % (0-2.0); HEMATOCRIT 38.2 % (32.4-45.2); LYMPH % 24.9 % (8-40); MCH 28.3 pg (25.7-33.7); MCHC 34.2 g/dl (32.0-36.0); MEAN CELL VOLUME 82.7 fl (80-96); MEAN PLT VOLUME 8.8 fl (7.5-11.1); MONO % 6.5 % (3.8-10.2); NEUT % 67.1 % (42.8-82.8); PLATELET COUNT 246 K/MM3 (134-434); RBC 4.61 M/mm3 (3.60-5.2); RDW 14.7 % (11.6-15.6); WHITE BLOOD COUNT 7.7 K/mm3 (4.0-10.0)
[2020-12-21 17:40] LABS: ALBUMIN 3.4 g/dl (3.4-5.0); BLOOD UREA NITROGEN 9.4 mg/dL (7-18); CALCIUM 8.8 mg/dL (8.5-10.1)
[2020-12-21 17:43] LABS: CREATININE 0.6 mg/dL (0.55-1.3)
[2020-12-21 17:46] LABS: BILIRUBIN,TOTAL 0.5 mg/dL (0.2-1); TOT PROT 6.4 g/dl (6.4-8.2)
[2020-12-21 19:24] LABS: EPI CELLS 26 /uL (0-25.1); HYALINE CASTS 1 /uL (0-3.1); PH,URINE 5.5 (5.0-8.0); URINE APPEARANCE CLEAR; URINE BACTERIA 561 /uL (0-1359); URINE BILIRUBIN NEGATIVE (NEGATIVE); URINE COLOR YELLOW; URINE GLUCOSE (UA) NEGATIVE (NEGATIVE); URINE KETONE NEGATIVE (NEGATIVE); URINE LEUK ESTERASE 1+ (NEGATIVE); URINE NITRITE NEGATIVE (NEGATIVE); URINE PROTEIN NEGATIVE (NEGATIVE); URINE RBC 9 /uL (0-23.9); URINE UROBILINOGEN 0.2 mg/dL (0.2-1.0); URINE WBC 35 /uL (0-25.8)
[2020-12-21 19:25] LABS: HCG,QUALITATIVE URINE Negative
== END 2020-12-21 20:29 | disposition home or self-care (01) ==
LOC: JER 15:57
PROC: 3E0333Z Introduction of Anti-inflammatory into Peripheral Vein, Percutaneous Approach (ICD-10-PCS; principal; 2020-12-21)
PROC: 3E033NZ Introduction of Analgesics, Hypnotics, Sedatives into Peripheral Vein, Percutaneous Approach (ICD-10-PCS; 2020-12-21)
DX: N83.202 Unspecified ovarian cyst, left side (principal)
CPT/HCPCS: 36415; 74177-TC; 80053; 81003; 83605; 83690; 84703; 85025; 99285-25; J0131; Q9967

== ENCOUNTER 2021-02-23 19:46 | Inpatient (IN) | payer BC, OTHER ==
[2021-02-23] MEDS ORDERED: ALBUTEROL SO4 2.5/IPRATROPIUM 0.5 INH SOL 3 ML VIAL.NEB. NEB ONE ×2 (20:16→21:04)
[2021-02-23] MEDS ORDERED: methylPREDNISolone NA SUCC 40 MG/1 ML VIAL IVPUSH ONE (20:23)
[2021-02-23] MEDS ORDERED: HYDROCORTISONE SOD SUCCINATE 100 MG/2 ML VIAL ONE ×2 (20:23→22:54)
[2021-02-23 21:15] LABS: BASO % 0.3 % (0-2.0); EOS % 0.3 % (0-4.5); HEMATOCRIT 41.1 % (32.4-45.2); HEMOGLOBIN 13.8 GM/dL (10.7-15.3); LYMPH % 15.8 % (8-40); MCH 27.8 pg (25.7-33.7); MCHC 33.5 g/dl (32.0-36.0); MEAN CELL VOLUME 82.8 fl (80-96); MEAN PLT VOLUME 8.2 fl (7.5-11.1); MONO % 2.1 % (3.8-10.2); NEUT % 81.5 % (42.8-82.8); PLATELET COUNT 287 10^3/uL (134-434); RBC 4.96 M/mm3 (3.60-5.2); RDW 14.9 % (11.6-15.6); WHITE BLOOD COUNT 11.7 K/mm3 (4.0-10.0)
[2021-02-23 21:36] LABS: CHLORIDE 101 mmol/L (98-107); SODIUM 128 mmol/L (136-145)
[2021-02-23 21:38] LABS: CALCIUM 9.1 mg/dL (8.5-10.1)
[2021-02-23 21:39] LABS: ALBUMIN 3.9 g/dl (3.4-5.0); BLOOD UREA NITROGEN 17.8 mg/dL (7-18); CO2 23 mmol/L (21-32); GLUCOSE,RANDOM 189 mg/dL (74-106)
[2021-02-23 21:42] LABS: CREATININE 0.9 mg/dL (0.55-1.3)
[2021-02-23 21:43] LABS: BILIRUBIN,TOTAL 0.4 mg/dL (0.2-1)
[2021-02-23 21:44] LABS: TOT PROT 7.8 g/dl (6.4-8.2)
[2021-02-23 21:46] LABS: ALK PHOS 89 U/L (45-117)
[2021-02-23 22:13] LABS: ANION GAP 4 MMOL/L (8-16); SGOT/AST 80 U/L (15-37); SGPT/ALT 33 U/L (13-61)
[2021-02-23] MEDS ORDERED: AZITHROMYCIN IVPB 500 MG in DEXTROSE 5%-WATER - 250 ML IVPB ONE (22:37)
[2021-02-23] MEDS ORDERED: CEFTRIAXONE 1 GM in DEXTROSE 5%-WATER - 100 ML IVPB ONE (22:37)
[2021-02-23] MEDS: ALBUTEROL SO4 2.5/IPRATROPIUM 0.5 INH SOL 3 ML VIAL.NEB. NEB SCH ×3 (22:55→23:16)
[2021-02-23] MEDS ORDERED: CEFTRIAXONE 1 GM/50 ML BAG ONE (22:59)
[2021-02-23 23:07] LABS: ALBUMIN 3.9 g/dl (3.4-5.0); CALCIUM 9.4 mg/dL (8.5-10.1)
[2021-02-23 23:08] LABS: BLOOD UREA NITROGEN 16.7 mg/dL (7-18)
[2021-02-23 23:11] LABS: CREATININE 0.9 mg/dL (0.55-1.3)
[2021-02-23 23:12] LABS: BILIRUBIN,TOTAL 0.4 mg/dL (0.2-1)
[2021-02-23] MEDS ORDERED: AZITHROMYCIN IVPB 500 MG/250 ML BAG IVPB ONE (23:52)
[2021-02-24] MEDS ORDERED: SODIUM CHLORIDE 0.9% 500 ML INFUS.BAG IV ONE (00:13)
[2021-02-24] MEDS ORDERED: ONDANSETRON 4 MG/2 ML VIAL IVPUSH ONE (00:13)
[2021-02-24] MEDS ORDERED: ONDANSETRON 4 MG/2 ML VIAL ONE (00:16)
[2021-02-24] MEDS ORDERED: ALBUTEROL SO4 HFA INHALER IH PRN (03:05)
[2021-02-24 04:10] LABS: PH,URINE 5.5 (5.0-8.0); URINE APPEARANCE Clear; URINE BILIRUBIN Negative (NEGATIVE); URINE COLOR Yellow; URINE GLUCOSE (UA) 2+ (NEGATIVE); URINE KETONE Negative (NEGATIVE); URINE LEUK ESTERASE Negative (NEGATIVE); URINE NITRITE Negative (NEGATIVE); URINE PROTEIN Negative (NEGATIVE); URINE UROBILINOGEN 0.2 mg/dL (0.2-1.0)
[2021-02-24 04:59] VITALS: BMI 50.9
[2021-02-24] MEDS: INSULIN SLIDING SCALE (NOVOLOG) 1 VIAL SQ SCH ×2 (06:44→11:24)
[2021-02-24 07:11] LABS: BASO % 0.3 % (0-2.0); HEMATOCRIT 37.6 % (32.4-45.2); HEMOGLOBIN 12.7 GM/dL (10.7-15.3); LYMPH % 16.6 % (8-40); MCHC 33.8 g/dl (32.0-36.0); MEAN CELL VOLUME 82.8 fl (80-96); MEAN PLT VOLUME 7.9 fl (7.5-11.1); MONO % 3.7 % (3.8-10.2); NEUT % 79.4 % (42.8-82.8); PLATELET COUNT 278 10^3/uL (134-434); RBC 4.55 M/mm3 (3.60-5.2); WHITE BLOOD COUNT 9.4 K/mm3 (4.0-10.0)
[2021-02-24 07:18] LABS: CALCIUM 8.5 mg/dL (8.5-10.1)
[2021-02-24 07:19] LABS: BLOOD UREA NITROGEN 11.8 mg/dL (7-18); MAGNESIUM 2.1 mg/dL (1.8-2.4)
[2021-02-24 07:22] LABS: CREATININE 0.6 mg/dL (0.55-1.3); PHOSPHOROUS 3.5 mg/dL (2.5-4.9)
[2021-02-24] MEDS ORDERED: methylPREDNISolone NA SUCC 40 MG/1 ML VIAL IVPUSH SCH (10:00)
[2021-02-24] MEDS ORDERED: ENOXAPARIN NA (PORCINE) 40 MG/0.4 ML DISP.SYRIN SQ SCH ×2 (10:00)
[2021-02-24] MEDS ORDERED: BUDESONIDE/FORMETEROL FUMARATE 80/4.5 mcg INHALER IH SCH (10:00)
[2021-02-24 12:20] VITALS: TEMP 98.9
[2021-02-24 12:45] VITALS: BP 133/84; PULSE 77
[2021-02-24] MEDS ORDERED: CEFTRIAXONE 1 GM in DEXTROSE 5%-WATER - 50 ML IVPB SCH (22:00)
[2021-02-24] MEDS ORDERED: AZITHROMYCIN IVPB 500 MG/250 ML BAG IVPB SCH (22:00)
[2021-02-24] MEDS ORDERED: MONTELUKAST NA 10 MG TABLET PO SCH (22:00)
[2021-02-25 13:11] LABS: MYCOPLASMA PNEUMONIAE,IG G AB 802 U/mL (0-99); MYCOPLASMA PNEUMONIAE,IGM AB 1027 U/mL (0-769)
== END 2021-02-24 12:48 | disposition home or self-care (01) | DRG 202 ==
LOC: JER 19:46 → JERBED 23:58 → J8W 02-24 04:04
PROVIDERS: ADMIT Internal Medicine; ATTEND Internal Medicine
DX: J45.901 Unspecified asthma with (acute) exacerbation (principal); Z68.43 Body mass index [BMI] 50.0-59.9, adult; E11.9 Type 2 diabetes mellitus without complications; Z79.84 Long term (current) use of oral hypoglycemic drugs; E66.01 Morbid (severe) obesity due to excess calories; G43.909 Migraine, unspecified, not intractable, without status migrainosus; J32.9 Chronic sinusitis, unspecified
CPT/HCPCS: 36415; 71046-TC-FY; 80048; 80053; 81003; 82550; 82553; 82962; 83036; 83735; 84100; 84484; 84703; 85025; 86738; 87040; 87899; 93005; 93010; 94150; 99285-25; C9803; G0378; U0003; U0005

== ENCOUNTER 2021-03-06 12:10 | Emergency (ER) | payer BC, OTHER ==
[2021-03-06 12:23] VITALS: BP 161/94; PULSE 105; TEMP 98; BMI 51.5
[2021-03-06] MEDS ORDERED: ALBUTEROL SO4 2.5/IPRATROPIUM 0.5 INH SOL 3 ML VIAL.NEB. NEB SCH (12:45)
[2021-03-06] MEDS ORDERED: methylPREDNISolone NA SUCC 125 MG/2 ML VIAL IVPUSH ONE (13:08)
[2021-03-06] MEDS ORDERED: methylPREDNISolone NA SUCC 125 MG/2 ML VIAL ONE (13:11)
[2021-03-06] MEDS ORDERED: ALBUTEROL SO4 2.5/IPRATROPIUM 0.5 INH SOL 3 ML VIAL.NEB. NEB ONE (13:11)
[2021-03-06] MEDS: ALBUTEROL SO4 2.5/IPRATROPIUM 0.5 INH SOL 3 ML VIAL.NEB. NEB SCH (13:27)
[2021-03-06 13:45] LABS: BASO % 0.4 % (0-2.0); EOS % 0.8 % (0-4.5); HEMATOCRIT 41.1 % (32.4-45.2); HEMOGLOBIN 13.4 GM/dL (10.7-15.3); LYMPH % 13.4 % (8-40); MCH 27.5 pg (25.7-33.7); MCHC 32.7 g/dl (32.0-36.0); MEAN PLT VOLUME 8.5 fl (7.5-11.1); MONO % 3.4 % (3.8-10.2); PLATELET COUNT 230 10^3/uL (134-434); RBC 4.89 M/mm3 (3.60-5.2); RDW 15.1 % (11.6-15.6); WHITE BLOOD COUNT 6.6 K/mm3 (4.0-10.0)
[2021-03-06 13:56] LABS: CALCIUM 9.1 mg/dL (8.5-10.1)
[2021-03-06 13:57] LABS: ALBUMIN 3.6 g/dl (3.4-5.0); MAGNESIUM 2.4 mg/dL (1.8-2.4)
[2021-03-06 14:00] LABS: CREATININE 0.8 mg/dL (0.55-1.3)
[2021-03-06 14:02] LABS: BILIRUBIN,TOTAL 0.6 mg/dL (0.2-1)
== END 2021-03-06 15:32 | disposition home or self-care (01) ==
LOC: JER 12:10
PROC: 3E0F7GC Introduction of Other Therapeutic Substance into Respiratory Tract, Via Natural or Artificial Opening (ICD-10-PCS; principal; 2021-03-06)
PROC: 3E033GC Introduction of Other Therapeutic Substance into Peripheral Vein, Percutaneous Approach (ICD-10-PCS; 2021-03-06)
DX: J45.909 Unspecified asthma, uncomplicated (principal)
CPT/HCPCS: 36415; 71045-TC-FY; 80053; 83735; 84703; 85025; 93005; 93010; 99285-25; C9803; U0003; U0005